=== PATIENT | male | born 1955 | race Caucasian/White ===

== ENCOUNTER → 2019-02-11 | Outpatient (CLI) | payer OTHER ==
[~2019-02-11] VITALS: Ht 185.4 cm; Wt 95.3 kg
[~2019-02-11] MED LIST: CARBIDOPA-LEVO1 EAC9 PO; FAMOTIDINE 40 M40 M1 PO; NABUMETONE 750750 M1 PO; SIMVASTATIN40 MG PO
[2019-02-11 09:35] VITALS: BP 131/88
--- NOTE | 2019-02-11 09:44 | NUR ---
Pain Clinic Assessment: 1. History of Osteoarthritis: SPINE HANDS History of Rheumatoid Arthritis: Not Applicable 2. Height: 6 ft. 1 in. 185.4 cm. Weight: 210.0 lb. oz. 95.256 kg. Patient's BMI: 27.7 3. Vital Signs: BP: 131/88 Pulse: 95 Resp: 16 Temp: 02 Sat: 97 ECG Mon: 4. Pain Intensity: 7 5. Fall Risk: Dizziness: N Needs help standing or walking: N Fallen in the last 3 months: N Fall risk comments: 6. Patient on Blood Thinner: None 7. History of Hypertension: N 8. Opioid Therapy greater than 6 weeks: N Opiate Contract Signed: 9. Risk Assessment Tool Provided: LOW-0 10. Functional Assessment Tool: 35/70 11. Recreational Drug Use: Never Drug Type: Tobacco Use: Never Smoker Tobacco Type: Amount or Packs/day: How Many Years: Alcohol Use: Yes Frequency: Weekly Quant: 1
--- NOTE | 2019-03-03 13:05 | HPC ---
[facility] [place] [address] PAIN MANAGEMENT CONSULTATION Name: ODALYS CAMPBELL REBECCA Room #: [facility] Ana.#: [id number] Admission: 02/11/19 Attend Phys: Pollo Vera DO Discharge: Date of : 51 Report #: [id number] THIS REPORT FOR: //name// CC: NORBERTO Armendariz Physician staff DATE OF SERVICE: 02/11/2019 CHIEF COMPLAINT: Axial back pain. HISTORY OF PRESENT ILLNESS: As you know, the patient is a very pleasant 63-year-old male, who has had a longstanding history of axial back pain. His pain exacerbated in 08/2017. He denies any specific injury or trauma that may have led to symptom development. He sought evaluation through Dr. Dat Armendariz's office with [facility] and it was determined that the patient may be experiencing discogenic pain. He was subsequently referred to our clinic to undergo disk block at L4-L5. If this is unsuccessful alleviating symptoms, then undergo a disk block at L5-S1. The patient indicates that his pain may have initially started after a "bad golf swing" and has just progressively worsened. He has been referred to our service to discuss the disk block injections. He has undergone lumbar epidural injections with Dr. Joseph Garcia, but with no lasting benefit. The patient was referred to our clinic then to undergo disk blocks. PAST MEDICAL HISTORY: 1. Thyroid nodule. 2. Hypercholesterolemia. 3. Osteoarthritis. 4. Hypogonadism. 5. Erectile dysfunction. 6. Parkinson's disease. 7. Obstructive sleep apnea. 8. Osteoarthritis. 9. Chronic back pain. PAST SURGICAL HISTORY: Right shoulder surgery x 4, elbow surgery x 2 on the right. ALLERGIES: SULFA AND PENICILLIN. CURRENT MEDICATIONS: Simvastatin 40 mg once a day, carbidopa/levodopa 25/100 mg t.i.d., famotidine 40 mg per day, nabumetone 750 mg twice a day, vitamin B12 1000 mcg per day, vitamin D3 1000 units per day, Cialis 20 mg p.r.n., testosterone injectable once every 2 weeks, AndroGel pump used once a day. [facility] [address] [place] [address] PAIN MANAGEMENT CONSULTATION Name: CAMPBELL,ODALYSPerla FERNANDEZ Room #: [facility].#: [id number] Admission: 02/11/19 Attend Phys: Pollo Vera DO Discharge: Date of : 51 Report #: [id number] REVIEW OF SYSTEMS: Positive for wearing corrective eyewear, chronic sinus problems with rhinitis, frequent urination, nocturia, change of force or stream urination, chronic low back pain. Heat and cold intolerance. All other review of systems negative per 12-point review of systems other than those listed in history of present illness. Pain impact score 35/70 indicating moderate interference of daily activities secondary to pain. IMAGING: MRI lumbar spine obtained 12/09/2018 shows L1-L2 unremarkable, L2-L3 unremarkable,L3-L4 shows circumferential annular disk bulge, no significant central canal neural foraminal stenosis, minimal facet arthropathy, L4-L5 degenerative end-plate changes, circumferential annular bulge, narrowing of the neural foramen with encroachment on the lateral recess, minimal facet hypertrophy, thecal sac measures 1.1 cm, L5-S1 circumferential disk bulge, central annular tear without protrusion, bulging annulus abuts, the anterior thecal sac causing narrowing of the neural foramen, right greater than left. There appears to be abutment of the exiting L5 nerve root on the right. Thecal sac measures 1.5 cm AP. PHYSICAL EXAMINATION: VITAL SIGNS: Blood pressure 133/88, pulse is 95, respiratory rate 16 and unlabored. The patient is 97% on room air, height 6 feet 1 inch tall, weight 210 pounds, BMI calculated 27.7. GENERAL: Well-developed, well-nourished, well-hydrated 63-year-old male. He appears his stated age. He is in no acute distress, awake, alert and oriented x 3. Current pain score is rated at 7/10. HEENT: Normocephalic, atraumatic. Pupils equal, round, reactive to light. Extraocular muscles are intact. Sclerae nonicteric without injection. NEUROLOGIC: Cranial nerves 2-12 grossly intact. Speech fluent. The patient deemed a good historian. LUNGS: Clear, no wheeze, rhonchi or rales. CARDIOVASCULAR: Regular. No appreciable gallop, no rub. ABDOMEN: Soft, nontender, nondistended, normoactive bowel sounds. EXTREMITIES: Show no clubbing, no cyanosis, and no edema. MUSCULOSKELETAL: The patient does has a slight pill-rolling type movement in his upper extremities, right greater than left. He has equal and symmetrical lower extremity strength 5/5, intact to light touch from L1 through S2 dermatomes. Deep tendon reflexes 2+/4 at patella and Achilles. Ankle clonus negative. Babinski is negative. Romberg negative. Station and gait is normal, able to heel walk, toe walk and tandem walk. Pain is elicited with lumbar provocation testing including extension, rotation, lateral flexion. Axial loading causes intensification of pain. ASSESSMENT: [facility] [address] [place] [address] PAIN MANAGEMENT CONSULTATION Name: ODALYS CAMPBELL Room #: [facility] Haskins#: [id number] Admission: 02/11/19 Attend Phys: Pollo Vera DO Discharge: Date of : 51 Report #: [id number] 1. Discogenic pain. 2. Mild facet arthropathy of the lumbar spine. 3. Chronic low back pain. PLAN: 1. Based on today's physical exam and history the patient has provided, the description the patient uses in regard to pain, likely source of the patient's pain is axial in nature. The patient and I went over his MRI today, which I am pleased to indicate shows no significant pathology. There are some changes at the L5-S1 level concerning for possible discogenic pain. The patient sought evaluation through Neuro[facility], who advised the patient to trial disk blocks at the L5-S1 and the L4-L5 level to determine if his pain is generated from these areas. We have agreed to see the patient back in followup visit to undergo a L5-S1 disk block at the patient's earliest convenience. We will obtain the equipment to have the patient undergo this procedure. If the L5-S1 provide good and prolonged benefit, then the patient will return to see Dr. Armendariz in regard to surgical options. If no improvement in symptoms with the L5-S1 disk block, then we would perform an L4-L5 disk block within 1-week. If this then provides improvement in symptoms, he will return to Dr. Armendariz's office to discuss treatment options for the L4-L5 level. 2. No medication changes made at today's visit. The patient will continue current medical therapy as previously prescribed. 3. We will have the patient return once we have gained all the procedural equipment for the patient to undergo the disk block. This does require a very specialized needle set, we will obtain this as quickly as possible, have the patient return to undergo the procedure once we have this equipment. 4. We will keep you apprised of the patient's response to the disk blocks were requested. We are hopeful the patient will see good and prolonged benefit with the disk block, which will help direct his further care. 5. We wish to thank Dr. Dat Armendariz for the opportunity to see this patient in consultation. We will keep you apprised of his response to treatment and return his care once we have completed the requested therapy. Again, we wish to thank Dr. Armendariz for the opportunity to see the patient in consultation. <ELECTRONICALLY SIGNED> By: Pollo Vera DO 03/03/19 [id number] Pollo Vera DO /nt
== END ==
LOC: PAIN 06:51
DX: M54.5 Low back pain (principal); M12.88 Other specific arthropathies, not elsewhere classified, other specified site; Z79.899 Other long term (current) drug therapy; Z88.8 Allergy status to other drugs, medicaments and biological substances

== ENCOUNTER → 2019-03-03 | Outpatient (CLI) | payer OTHER ==
[~2019-03-03] VITALS: Ht 185.4 cm; Wt 98.0 kg
[2019-03-03 09:03] VITALS: BP 141/93
--- NOTE | 2019-03-03 09:08 | NUR ---
Pain Clinic Assessment: 1. History of Osteoarthritis: SPINE HANDS History of Rheumatoid Arthritis: Not Applicable 2. Height: 6 ft. 1 in. 185.4 cm. Weight: 216.0 lb. oz. 97.977 kg. Patient's BMI: 28.5 3. Vital Signs: BP: 141/93 Pulse: 95 Resp: 16 Temp: 02 Sat: 97 ECG Mon: 4. Pain Intensity: 7-WITH ACTIVITY 5. Fall Risk: Dizziness: N Needs help standing or walking: N Fallen in the last 3 months: N Fall risk comments: 6. Patient on Blood Thinner: None 7. History of Hypertension: N 8. Opioid Therapy greater than 6 weeks: N Opiate Contract Signed: 9. Risk Assessment Tool Provided: LOW-0 10. Functional Assessment Tool: 35/70 11. Recreational Drug Use: Never Drug Type: Tobacco Use: Never Smoker Tobacco Type: Amount or Packs/day: How Many Years: Alcohol Use: Yes Frequency: Quant:
== END | disposition home or self-care (01) ==
LOC: PAIN 02-17 06:51
DX: M54.5 Low back pain (principal); G89.29 Other chronic pain; M51.36 Other intervertebral disc degeneration, lumbar region; M47.896 Other spondylosis, lumbar region; Z88.0 Allergy status to penicillin; Z88.2 Allergy status to sulfonamides